=== PATIENT | male | born 2000 | race Two or more races ===

== ENCOUNTER 2021-09-11 16:36 | Emergency (ER) | payer OTHER ==
[~2021-09-11] VITALS: Ht 170.2 cm; Wt 74.8 kg
== END 2021-09-11 22:00 | disposition home or self-care (01) ==
LOC: ER 16:36
DX: S43.101A Unspecified dislocation of right acromioclavicular joint, initial encounter (principal); W18.30XA Fall on same level, unspecified, initial encounter; Y93.89 Activity, other specified; Y92.832 Beach as the place of occurrence of the external cause